=== PATIENT | female | born 1980 | race Caucasian/White ===

== ENCOUNTER 2017-01-05 21:27 | Emergency (ER) | payer SELFPAY ==
[2017-01-05 21:40] VITALS: BP 105/78
[2017-01-05] MEDS ORDERED: Ondansetron ODT TAB* 4 MG PO ONE (22:00)
[2017-01-05] MEDS ORDERED: HYDROcodone/ACETAMIN 5-325 MG* 1 TAB PO ONE (22:02)
--- NOTE | 2017-01-05 22:14 | UC ---
Abdominal Pain Female HPI - HPI Summary HPI Summary: mid-abdominal pain for 2 days. Started off just as waves of nausea. Developed into a dull constant ache across middle of abdomen and radiating into the back. No fever. No vomiting or diarrhea. Worse when she tries to eat. No trauma. No history of similar pain. Diminished appetite, but did eat supper. No menses since coming off the Depo shot in July. No vaginal discharge. - History of Current Complaint Chief Complaint: UCAbdominalPain Stated Complaint: back/abdominal pain Time Seen by Provider: 01/05/17 21:45 Hx Obtained From: Patient Hx Last Menstrual Period: CURRENT Onset/Duration: Gradual Onset, Lasting Days - 2 Timing: Constant Severity Initially: Mild Severity Currently: Moderate Location: Diffuse Radiates: Yes Radiates to: Back - both sides, upper lumbar area Character: Aching, Cramping, Dull Aggravating Factor(s): Food Alleviating Factor(s): Other: - feels better to move around, seems to hurt more when sitting or lying flat Associated Signs and Symptoms: Positive: Decreased Appetite, Nausea. Negative: Diaphoresis, Fever, Cough, Chest Pain, Dizzy, Back Pain, Constipation, Blood in Stool, Urinary Symptoms, Vaginal Bleeding, Vaginal Discharge, Vomiting, Diarrhea - Risk Factors Ectopic Risk Factor: Negative Ovarian Torsion Risk Factor: Negative Allergies/Adverse Reactions: Allergies Allergy/AdvReac Type Severity Reaction Status Date / Time No Known Allergies Allergy Verified 10/13/15 20:20 PMH/Surg Hx/FS Hx/Imm Hx Previously Healthy: Yes - Surgical History Surgical History: Yes Surgery Procedure, Year, and Place: EYE SX A CHILD. CHOLECYSTECTOMY. Nasal surgery 07/2016 - Family History Known Family History: Positive: Respiratory Disease - asthma - Social History Occupation: Employed Full-time Lives: With Family Alcohol Use: Rare Substance Use Type: None Smoking Status (MU): Current Every Day Smoker Type: Cigarettes Amount Used/How Often: 1/2 PPD Length of Time of Smoking/Using Tobacco: 15 YRS Review of Systems Constitutional: Negative Skin: Negative Eyes: Negative ENT: Negative Respiratory: Negative Cardiovascular: Negative Gastrointestinal: Abdominal Pain Genitourinary: Negative Motor: Negative Neurovascular: Negative Musculoskeletal: Negative Neurological: Negative Psychological: Negative All Other Systems Reviewed And Are Negative: Yes Physical Exam Triage Information Reviewed: Yes Appearance: Well-Appearing, No Pain Distress, Well-Nourished Vital Signs: Initial Vital Signs Temp 97.9 F 01/05/17 21:32 Pulse 90 01/05/17 21:32 Resp 16 01/05/17 21:32 BP 105/78 01/05/17 21:32 Pulse Ox 100 01/05/17 21:32 Vital Signs Reviewed: Yes Eye Exam: Normal ENT Exam: Normal Neck exam: Normal Respiratory Exam: Normal Cardiovascular Exam: Normal Abdomen Description: Positive: No Organomegaly, Soft, Other: - mild diffuse mid- abd pain. NO rebound or guarding. Abdomen is soft. Negative: CVA Tenderness (R) , CVA Tenderness (L), Distended, Hernia @, Hepatomegaly, McBurney's Point Tenderness, Peritoneal Signs, Pulsatile Mass, Splenomegaly Bowel Sounds: Negative: Present Musculoskeletal Exam: Normal Neurological Exam: Normal Psychological Exam: Normal Skin Exam: Normal Abd Pain Female Course/Dx - Course Course Of Treatment: She does not currently have any peritoneal signs, no surgical abdomen. We talked about the possibility of a viral gastroenteritis. Given warning signs for worsening pain and was advised to go to ER for further eval if these occur. - Differential Dx/Diagnosis Differential Diagnosis: Appendicitis, Diverticulitis, Renal Colic, Urinary Tract Infection Provider Diagnoses: abdominal pain Discharge - Discharge Plan Condition: Stable Disposition: HOME Patient Education Materials: Gastroenteritis (ED) Referrals: No Primary Care Phys,NOPCP [Primary Care Provider] - Additional Instructions: Your pain tonight is most consistent with a viral "stomach flu". You may develop vomiting or diarrhea with this illness. Take the meds tonight to control the pain and get a good night's sleep. Very often the pain is much better the next day. IF your pain gets worse, especially if it starts to hurt on the lower right side of the abdomen, or if you have pain along with a fever and vomiting, then you should go to the ER for further evaluation. Sometimes appendicitis can start out like this, and then gets worse as time goes on.
== END 2017-01-05 22:19 | disposition home or self-care (01) ==
LOC: UCCORT 21:27
DX: R10.9 Unspecified abdominal pain (principal); F17.210 Nicotine dependence, cigarettes, uncomplicated
CPT/HCPCS: 81025; 99213; A9270-GY; G0463

== ENCOUNTER 2017-08-08 20:46 | Emergency (ER) | payer SELFPAY ==
[2017-08-08 21:06] VITALS: BP 112/81
--- NOTE | 2017-08-08 21:22 | UC ---
Throat Pain/Nasal Gurpreet HPI - HPI Summary HPI Summary: Patient has had three days of increased sinus pressure and head fullness, recent sinus surgery. no fever. - History of Current Complaint Chief Complaint: UCGeneralIllness Stated Complaint: SINUS Time Seen by Provider: 08/08/17 21:06 Hx Obtained From: Patient Hx Last Menstrual Period: CURRENT ?: No Onset/Duration: Sudden Onset, Lasting Days Severity: Moderate Associated Signs & Symptoms: Positive: Sinus Discomfort, Nasal Discharge Related History: Smoking, Prior ENT Surgery - Allergies/Home Medications Allergies/Adverse Reactions: Allergies Allergy/AdvReac Type Severity Reaction Status Date / Time No Known Allergies Allergy Verified 08/08/17 21:06 Home Medications: Home Medications Pseudoephedrine TAB* [Sudafed TAB*] 60 mg PO Q6H PRN 08/08/17 [History Confirmed 08/08/17] PMH/Surg Hx/FS Hx/Imm Hx Previously Healthy: Yes - Surgical History Surgical History: Yes Surgery Procedure, Year, and Place: EYE SX A CHILD. CHOLECYSTECTOMY. Nasal surgery 07/2016 - Family History Known Family History: Positive: Respiratory Disease - asthma - Social History Alcohol Use: Rare Substance Use Type: None Smoking Status (MU): Current Every Day Smoker Type: Cigarettes Amount Used/How Often: 1/2 PPD Length of Time of Smoking/Using Tobacco: 15 YRS Review of Systems Constitutional: Fatigue Skin: Negative Eyes: Negative ENT: Sore Throat, Sinus Congestion, Sinus Pain/Tenderness Cardiovascular: Negative Gastrointestinal: Negative Genitourinary: Negative Motor: Negative Neurovascular: Negative Musculoskeletal: Negative Neurological: Headache Psychological: Negative Is Patient Immunocompromised?: No All Other Systems Reviewed And Are Negative: Yes Physical Exam Triage Information Reviewed: Yes Appearance: Well-Nourished, Ill-Appearing, Pain Distress Vital Signs: Initial Vital Signs Temp 98.3 F 08/08/17 21:03 Pulse 77 08/08/17 21:03 Resp 16 08/08/17 21:03 BP 112/81 08/08/17 21:03 Pulse Ox 100 08/08/17 21:03 Vital Signs Reviewed: Yes Eye Exam: Normal ENT Exam: Normal ENT: Positive: Pharynx normal, Pharyngeal erythema, TMs normal Dental Exam: Normal Neck exam: Normal Neck: Positive: Supple, Nontender, No Lymphadenopathy Respiratory Exam: Normal Respiratory: Positive: Chest non-tender, Lungs clear, Normal breath sounds Cardiovascular Exam: Normal Cardiovascular: Positive: RRR, No Murmur, Pulses Normal Abdominal Exam: Normal Abdomen Description: Positive: Nontender, No Organomegaly, Soft Bowel Sounds: Positive: Present Musculoskeletal Exam: Normal Neurological Exam: Normal Psychological Exam: Normal Skin Exam: Normal Throat Pain/Nasal Course/Dx - Course Course Of Treatment: hx obtained, exam performed, meds reviewed, treated for sinusitis - Differential Dx/Diagnosis Differential Diagnosis/HQI/PQRI: Pharyngitis, Sinusitis Provider Diagnoses: sinusitis. tobacco abuse. deviated septum Discharge - Discharge Plan Condition: Stable Disposition: HOME Patient Education Materials: Sinusitis (ED), Warm Compress or Soak (ED) Additional Instructions: 1. Warm compresses to face 2. Daily flonase/ nasacort OTC 3. Start the prednisone tomorrow 4. Start the azithromycin in 2 days if not improving. 5. Ibuprofen for pain 6. Stop Smkoing 7. Follow up as needed
[2017-08-08] MEDS ORDERED: predniSONE TAB* 10 MG PO ONE (21:27)
== END 2017-08-08 21:30 | disposition home or self-care (01) ==
LOC: UCCORT 20:46
DX: J32.9 Chronic sinusitis, unspecified (principal); J34.2 Deviated nasal septum; F17.210 Nicotine dependence, cigarettes, uncomplicated
CPT/HCPCS: 99212; G0463; J7512